=== PATIENT | female | born 1955 | race Caucasian/White ===

== ENCOUNTER 2016-08-06 12:55 | Emergency (ER) | payer MEDICAID, OTHER ==
[~2016-08-06] VITALS: Ht 162.6 cm; Wt 68.0 kg
[2016-08-07 00:09] LABS: Basophils # (auto) 0.1 uL; Basophils % (auto) 1.1 % (0.0-2.0); Eosinophils # (auto) 0.2 uL; Eosinophils % (auto) 2.1 % (0.0-7.0); Hematocrit 40.6 % (36.0-46.0); Hemoglobin 13.4 g/dL (12.2-16.2); Lymphocytes # (auto) 2.3 uL; Lymphocytes % (auto) 20.8 % (10.0-50.0); Mean Corpuscular Hemoglobin 31.4 pg (28.0-32.0); Mean Corpuscular Hgb Conc. 32.9 g/dL (32.0-36.0); Mean Corpuscular Volume 95.4 fL (80.0-100.0); Mean Platelet Volume 8.9 fL (7.4-10.4); Monocytes % (auto) 9.6 % (0.0-12.0); Neutrophils # (auto) 7.3 uL; Neutrophils % (auto) 66.4 % (37.0-80.0); Platelet Count (auto) 332 10^3/uL (140-450); Red Cell Distribution Width 16.1 % (11.6-16.0); White Blood Cell 10.9 10^3/uL (4.4-10.8)
[2016-08-07 00:54] LABS: Albumin 3.8 g/dL (3.4-5.0); BUN/Creatinine Ratio 20.6; Calcium 10.8 mg/dL (8.5-10.1); Potassium 3.8 mmol/L (3.5-5.1)
[2016-08-07 01:31] LABS: Bilirubin, Total 0.4 mg/dL (0.2-1.0); Total Protein 7.3 g/dL (6.4-8.2)
[2016-08-07] MEDS ORDERED: QUEtiapine FUMARATE 100 MG TAB PO ONE (03:30)
[2016-08-07] MEDS ORDERED: ZOLPIDEM TARTRATE 5 MG TAB PO ONE (03:30)
[2016-08-08 06:28] VITALS: BP 124/81
== END 2016-08-08 11:38 | disposition home or self-care (01) ==
LOC: ER 12:55
DX: F29 Unspecified psychosis not due to a substance or known physiological condition (principal); R45.1 Restlessness and agitation; R45.6 Violent behavior; F20.9 Schizophrenia, unspecified; G30.9 Alzheimer's disease, unspecified; Z91.14 Patient's other noncompliance with medication regimen
CPT/HCPCS: 36415; 80053; 85025; 93005

== ENCOUNTER → 2016-08-08 | Outpatient (CLI) | payer MEDICAID | END | disposition home or self-care (01) | LOC: LAB 11:48 | PROVIDERS: ATTEND Physician Assistant | DX: Z77.21 Contact with and (suspected) exposure to potentially hazardous body fluids (principal) | CPT/HCPCS: 86703 ==

== ENCOUNTER 2019-12-17 07:38 | Inpatient (IN) | payer MEDICARE, MEDICAID ==
[~2019-12-17] VITALS: Ht 167.6 cm; Wt 68.0 kg
[2019-12-17] MEDS ORDERED: SODIUM CHLORIDE 0.9% 1,000 ML IV ONE ×2 (07:44)
[2019-12-17 08:39] LABS: Basophils # (auto) 0.1 10 ^3/uL (0-0.2); Basophils % (auto) 0.9 % (0.0-2.0); Eosinophils # (auto) 0.1 10 ^3/uL (0-0.8); Eosinophils % (auto) 2.3 % (0.0-7.0); Hematocrit 41.3 % (36.0-46.0); Hemoglobin 13.5 g/dL (12.2-16.2); Lymphocytes # (auto) 1.3 10 ^3/uL (0.4-5.4); Mean Corpuscular Hemoglobin 30.1 pg (28.0-32.0); Mean Corpuscular Hgb Conc. 32.7 g/dL (32.0-36.0); Mean Corpuscular Volume 92.2 fL (80.0-100.0); Monocytes # (auto) 0.9 10 ^3/uL (0-1.3); Monocytes % (auto) 13.6 % (0.0-12.0); Neutrophils % (auto) 63.2 % (37.0-80.0); Platelet Count (auto) 314 10^3/uL (140-450); Red Blood Cells 4.48 10^6/uL (4.0-5.20); Red Cell Distribution Width 14.6 % (11.8-14.3); White Blood Cell 6.4 10^3/uL (4.4-10.8)
[2019-12-17 08:54] LABS: INR 0.99 (0.9-1.15); Partial Thromboplastin Time 25.6 sec (23.0-31.2)
[2019-12-17 09:01] LABS: Alanine Aminotransferase 26 U/L (13-56); Albumin 3.2 g/dL (3.4-5.0); Anion Gap 8 (5-15); Aspartate Aminotransferase 17 U/L (15-37); BUN/Creatinine Ratio 23.1; Blood Urea Nitrogen 24 mg/dL (7-18); Calcium 10.4 mg/dL (8.5-10.1); Carbon Dioxide 23 mmol/L (21-32); Chloride 110 mmol/L (98-107); GFR African American 68 mL/min; GFR Non-African American 57 mL/min; Glucose 97 mg/dL (74-106); Potassium 3.8 mmol/L (3.5-5.1); Sodium 141 mmol/L (136-145)
[2019-12-17 09:06] LABS: Alkaline Phosphatase 114 U/L (45-117); Bilirubin, Total 0.5 mg/dL (0.2-1.0)
[2019-12-17] MEDS ORDERED: LORazepam 2MG/ML-1ML VIAL IV ONE ×2 (10:00→10:45)
[2019-12-17] MEDS ORDERED: HALOPERIDOL LACTATE 5 MG/ML INJ VIAL IM ONE (10:00)
[2019-12-17] MEDS ORDERED: diphenhdrAMINE HCL 50 MG/1 ML VL IV ONE (10:45)
[2019-12-17] MEDS ORDERED: diphenhdrAMINE HCL 50 MG/1 ML VL ONE (10:47)
[2019-12-17] MEDS ORDERED: LORazepam 2MG/ML-1ML VIAL ONE (10:47)
[2019-12-17 11:48] LABS: Urine Bacteria NONE SEEN /hpf (None Seen); Urine Blood Negative /uL (Negative); Urine Specific Gravity 1.015 (1.001-1.035); Urine WBC 1 /hpf (0 - 5)
[2019-12-17] MEDS ORDERED: NITROGLYCERIN 0.4 MG SL TAB SL PRN (14:15)
[2019-12-17] MEDS ORDERED: MORPHINE SULF INJ 2 MG/ML SYRINGE 1ML IV PRN (14:15)
[2019-12-17] MEDS: SODIUM CHLORIDE 0.9% 1,000 ML IV SCH (14:56)
[2019-12-17] MEDS ORDERED: BACITRACIN TOP OINT 1 UD PKG TOP ONE (15:02)
[2019-12-17 15:59] LABS: Alcohol, Urine < 3.0 mg/dL (0-10); Amphetamine Screen, Urine NEGATIVE (NEGATIVE); Barbiturate Scree,Urine NEGATIVE (NEGATIVE); Benzodiazephine Screen, Urine NEGATIVE (NEGATIVE); Cannabinoid Screen, Urine NEGATIVE (NEGATIVE); Cocaine Screen, Urine NEGATIVE (NEGATIVE); Opiate Scree,Urine NEGATIVE (NEGATIVE); Phencyclidine Screen, Urine NEGATIVE (NEGATIVE)
[2019-12-17 17:00] VITALS: BP 144/86
[2019-12-17] MEDS ORDERED: HYDR-4924 PO (17:49)
[2019-12-17] MEDS ORDERED: QUET100T46 PO (17:49)
[2019-12-17] MEDS ORDERED: FLUO1TAB12 PO (17:49)
[2019-12-17] MEDS ORDERED: ALEN1TAB32 PO (17:49)
[2019-12-17] MEDS ORDERED: CYCL-611 PO (17:49)
--- NOTE | 2019-12-17 18:00 | NUR ---
MS admit from ER EDA LOPEZ admitted to tele/MS after SBAR received. Patient oriented to Rupal Chapman, primary RN, unit, room, bed, and unit policies regarding patient care and visiting hours. Patient weighed by bedscale and encouraged to call if they need something. Patient is comfortable sleeping in bed. Nasal cannula at 3 L. RR even and unlabored. Bed at lowest locked position and call light within reach.
[2019-12-17 18:11] LABS: Blood Alcohol < 3.0 mg/dL (0-5)
[2019-12-17 18:14] LABS: Creatine Kinase IFCC 91 U/L (26-192)
--- NOTE | 2019-12-17 18:53 | NUR ---
Tele-health computer at bedside.
--- NOTE | 2019-12-17 18:58 | NUR ---
Closing note Patient comfortably resting, NCat 3L, RR even and unlabored. Bed at lowest locked position and call light within reach. Report given to Gatito BEARDEN
[2019-12-17 22:00] VITALS: BP 122/78
[2019-12-17] MEDS ORDERED: TEMAZEPAM 15 MG CAP PO ONE (23:00)
--- NOTE | 2019-12-18 00:01 | NUR ---
1899. REPOR RECEIVED. 1929. PATIENT SEEN. SLEEPING BUT AROUSABLE. UNABLE TO ANSWER QUESTIONS. HAS DRY DRESSING BEHIND HER NECK. TO BE EVALUATED.
--- NOTE | 2019-12-18 01:17 | NUR ---
WOUND ON THE POSTRIOR NECK ASSESSED. DIRTY PINK GREYISH EXUDATE NOTED ON DRESSING. WOUND CLEANED WITH WOUND GUN STOCK MAKER. GAUZE APPLIED AND COVERED WITH ABDOMINAL PAD. PARTIAL BODY BATH DONE. PATIENT APPEARED TO BE GETTING ORIENTED. SHE WAS SUPRISED TO SEE HERSELF IN THE HOSPITAL BED AND ROOM.
--- NOTE | 2019-12-18 01:23 | NUR ---
PATIENT ASSISTED TO THE BEDSIDE COMMODE. VOIDED 500ML OF CLEAR URINE.
[2019-12-18 05:00] VITALS: BP 131/88
[2019-12-18 08:00] VITALS: BP 133/79
--- NOTE | 2019-12-18 08:15 | NUR ---
Opening Shift Note Assumed care of patient, pt comfortably resting.RR are even and unlabored. Patient arousable to voice and gentle touching. No S/S of distress/SOB or pain. Instructed on POC and to call for assist PRN, will continue to monitor for changes Q1hr and PRN. Bed at lowest locked position and call light within reach.
[2019-12-18 09:00] VITALS: BP 133/79
--- NOTE | 2019-12-18 10:02 | NUR ---
Wound care nurse at bedside.
--- NOTE | 2019-12-18 10:02 | NUR ---
WOUND CARE NOTE: Wound care in to see patient per wound care request regarding "neck abrasion. " Bedside nurse took photograph of patient's wound upon admission for reference. Patient is 64 years old female with admitting diagnosis of Encephalopathy. Patient is resting in bed in Rm. 286A. Patient's eyes are closed, respond to verbal and tactile stimuli and follow direction. Patient is in no stated pain at this time and she appears to be in no pain using Foreman Song Faces Pain Scale. She's able to turn and reposition self. Her Jesus score is 18. On reports, patient admitted due to bizarre behavior, history of psychiatric disorder and scratching herself causing wound to her L posterior neck. Noted patient's L posterior neck has 6x6cm open full thickness wound with no measurable depth, rommel wound is bright red, minimal serosanguineous drainage noted, no odor noted. Cleansed patient's wound with NS, patted dry with gauze, applied Thera honey gel and covered with Opti foam gentle dressing. Sacral and back, bony prominences area are also examined, no pressure injury noted. Patient tolerated well. Bed in low position with all safety precautions in placed. RECOMMENDATION: Nursing to continue with EOD/PRN dressing change to posterior neck wound per MD order, redistribute pressure points with pillows, continue monitoring by wound care while patient is hospitalized. Addendum: 12/18/19 at 1533 by Maryann Portillo RN Amended: Links added.
[2019-12-18] MEDS: SODIUM CHLORIDE 0.9% 1,000 ML IV SCH (11:06)
[2019-12-18] MEDS: cefTRIAXone 1GM/50ML D5W 50 ML IV SCH (11:07)
[2019-12-18] MEDS: ENOXAPARIN SOD 40 MG/0.4 ML SYRINGE SC SCH (11:07)
[2019-12-18] MEDS ORDERED: LACTULOSE 20Gm/30ML SOLN PO PRN (11:15)
--- NOTE | 2019-12-18 11:15 | NUR ---
Dr. Manrique at bedside.
[2019-12-18 13:00] VITALS: BP 158/89
--- NOTE | 2019-12-18 13:05 | NUR ---
Bladder scanner Bladder scanner showed approximately 700mls patient voided right after a total of 1100mls of dark yellow urine collected
--- NOTE | 2019-12-18 13:11 | NUR ---
Urine specimen collected and sent to lab
[2019-12-18 17:00] VITALS: BP 155/85
--- NOTE | 2019-12-18 17:16 | NUR ---
COVID test Collected new covid test. Walked test to lab.
--- NOTE | 2019-12-18 18:00 | NUR ---
Patient's temperature is 100.6. Will start cooling measures. No s/s of distress/noted.
--- NOTE | 2019-12-18 18:42 | NUR ---
Paged Hospitalist for elevated BP. 155/85. Awaiting call back.
--- NOTE | 2019-12-18 19:15 | NUR ---
Request Tele-psych report to be faxed to the hospital, endorsed to NOC.
--- NOTE | 2019-12-18 19:26 | NUR ---
closing note Patient is comfortable resting in bed. No s/s of distress/sob noted/stated. Bed at lowest locked position and call light within reach. Care endorsed to NOC RN.
--- NOTE | 2019-12-18 19:30 | NUR ---
Opening Shift Note Assumed care of patient. Patient sleeping. No S/S of distress/SOB or pain. Safety measures maintained by keeping the bed locked in lowest position, 2 side rails up, personal items and call light within reach. Bed alarm in place. Instructed on POC and to call for assist PRN, will continue to monitor for changes Q1hr and PRN.
[2019-12-18 22:00] VITALS: BP 135/76
[2019-12-19] MEDS: SODIUM CHLORIDE 0.9% 1,000 ML IV SCH ×2 (00:15→16:56)
--- NOTE | 2019-12-19 04:00 | NUR ---
Called Telehealth to fax report
--- NOTE | 2019-12-19 04:45 | NUR ---
Received report from [employer]. Placed in hard chart.
[2019-12-19 05:00] VITALS: BP 145/97
[2019-12-19 07:22] LABS: Basophils # (auto) 0 10 ^3/uL (0-0.2); Basophils % (auto) 0.6 % (0.0-2.0); Eosinophils # (auto) 0.2 10 ^3/uL (0-0.8); Eosinophils % (auto) 3.8 % (0.0-7.0); Hematocrit 40.5 % (36.0-46.0); Hemoglobin 13.1 g/dL (12.2-16.2); Lymphocytes # (auto) 1.2 10 ^3/uL (0.4-5.4); Lymphocytes % (auto) 21.4 % (10.0-50.0); Mean Corpuscular Hemoglobin 29.8 pg (28.0-32.0); Mean Corpuscular Hgb Conc. 32.4 g/dL (32.0-36.0); Mean Corpuscular Volume 92.1 fL (80.0-100.0); Monocytes # (auto) 0.6 10 ^3/uL (0-1.3); Monocytes % (auto) 11.2 % (0.0-12.0); Neutrophils # (auto) 3.5 10 ^3/uL (1.6-8.6); Nucleated Red Blood Cells % 0.1 %; Platelet Count (auto) 265 10^3/uL (140-450); Red Cell Distribution Width 14.1 % (11.8-14.3); White Blood Cell 5.6 10^3/uL (4.4-10.8)
[2019-12-19 07:29] LABS: Calcium 8.9 mg/dL (8.5-10.1); Potassium 3.9 mmol/L (3.5-5.1)
[2019-12-19] MEDS: ENOXAPARIN SOD 40 MG/0.4 ML SYRINGE SC SCH (08:39)
[2019-12-19] MEDS: cefTRIAXone 1GM/50ML D5W 50 ML IV SCH (08:39)
[2019-12-19 09:00] VITALS: BP 131/76
[2019-12-19 13:00] VITALS: BP 117/79
--- NOTE | 2019-12-19 13:54 | NUR ---
Est energy needs 1226-8670 kcal (20-25 kcal/kg BW 70.9kg) Est protein needs 57-71g (0.8-1g/kg BW 70.9kg) will reassess prn. Addendum: 12/19/19 at [address] Amended: Links added.
[2019-12-19] MEDS ORDERED: CLINDAMYCIN HCL 150 MG CAP PO ONE (15:45)
[2019-12-19 17:00] VITALS: BP 135/85
--- NOTE | 2019-12-19 19:30 | NUR ---
Opening Shift Note Assumed care of patient, awake and alert. A&Ox4. Patient resting in bed, but easily arousable. No S/S of distress/SOB or pain. Safety measures maintained by keeping the bed locked in lowest position, 2 side rails up, personal items and call light within reach. Instructed on POC and to call for assist PRN, will continue to monitor for changes Q1hr and PRN.
[2019-12-19 22:28] VITALS: BP 126/89
[2019-12-19] MEDS: CLINDAMYCIN HCL 150 MG CAP PO SCH (22:43)
[2019-12-20 05:17] VITALS: BP 136/101
[2019-12-20 06:18] LABS: Basophils # (auto) 0.1 10 ^3/uL (0-0.2); Basophils % (auto) 1.2 % (0.0-2.0); Eosinophils # (auto) 0.3 10 ^3/uL (0-0.8); Eosinophils % (auto) 5.5 % (0.0-7.0); Lymphocytes # (auto) 1.2 10 ^3/uL (0.4-5.4); Lymphocytes % (auto) 23.9 % (10.0-50.0); Mean Corpuscular Hemoglobin 30.5 pg (28.0-32.0); Mean Corpuscular Hgb Conc. 33.3 g/dL (32.0-36.0); Mean Corpuscular Volume 91.6 fL (80.0-100.0); Monocytes # (auto) 0.6 10 ^3/uL (0-1.3); Monocytes % (auto) 11.6 % (0.0-12.0); Neutrophils % (auto) 57.8 % (37.0-80.0); Nucleated Red Blood Cells % 0.2 %; Platelet Count (auto) 283 10^3/uL (140-450); Red Blood Cells 4.59 10^6/uL (4.0-5.20); Red Cell Distribution Width 14.4 % (11.8-14.3); White Blood Cell 5.2 10^3/uL (4.4-10.8)
[2019-12-20] MEDS: CLINDAMYCIN HCL 150 MG CAP PO SCH ×3 (06:21→22:11)
[2019-12-20 06:41] LABS: BUN/Creatinine Ratio 12.1; Potassium 3.7 mmol/L (3.5-5.1)
[2019-12-20 08:00] VITALS: BP 123/65
[2019-12-20] MEDS: ENOXAPARIN SOD 40 MG/0.4 ML SYRINGE SC SCH (08:44)
[2019-12-20] MEDS: SODIUM CHLORIDE 0.9% 1,000 ML IV SCH (08:46)
[2019-12-20] MEDS: cefTRIAXone 1GM/50ML D5W 50 ML IV SCH (08:46)
[2019-12-20 12:00] VITALS: BP 144/94
--- NOTE | 2019-12-20 13:27 | NUR ---
Doctor joe at bedside per md "patient can have pureed diet and if patient becomes nausea or has abdominal pain put in GI consult".
[2019-12-20] MEDS ORDERED: CYCLOBENZAPRINE HCL 10 MG TAB PO PRN (15:15)
[2019-12-20 17:00] VITALS: BP 120/72
[2019-12-20] MEDS: QUEtiapine FUMARATE 100 MG TAB PO SCH (17:37)
--- NOTE | 2019-12-20 19:35 | NUR ---
Opening Shift Note Assumed care of patient, awake and alert. Patient sitting up in bed. A&Ox4. No S/S of distress/SOB or pain. Safety measures maintained by keeping the bed locked in lowest position, personal items and call light within reach. Instructed on POC and to call for assist PRN, will continue to monitor for changes Q1hr and PRN.
[2019-12-20 21:00] VITALS: BP 115/66
[2019-12-20] MEDS: hydrOXYzine 25 MG TAB or CAP PO SCH (22:11)
[2019-12-21] MEDS: SODIUM CHLORIDE 0.9% 1,000 ML IV SCH ×2 (01:59→17:45)
[2019-12-21 05:00] VITALS: BP 123/74
[2019-12-21 05:23] LABS: Basophils # (auto) 0 10 ^3/uL (0-0.2); Eosinophils # (auto) 0.3 10 ^3/uL (0-0.8); Eosinophils % (auto) 5.4 % (0.0-7.0); Hemoglobin 12.5 g/dL (12.2-16.2); Lymphocytes # (auto) 1.4 10 ^3/uL (0.4-5.4); Lymphocytes % (auto) 29.7 % (10.0-50.0); Mean Corpuscular Hemoglobin 30.2 pg (28.0-32.0); Mean Corpuscular Hgb Conc. 32.9 g/dL (32.0-36.0); Mean Corpuscular Volume 91.7 fL (80.0-100.0); Monocytes # (auto) 0.6 10 ^3/uL (0-1.3); Monocytes % (auto) 13.3 % (0.0-12.0); Neutrophils # (auto) 2.4 10 ^3/uL (1.6-8.6); Neutrophils % (auto) 50.6 % (37.0-80.0); Nucleated Red Blood Cells % 0.1 %; Platelet Count (auto) 260 10^3/uL (140-450); Red Blood Cells 4.14 10^6/uL (4.0-5.20); Red Cell Distribution Width 14.4 % (11.8-14.3); White Blood Cell 4.8 10^3/uL (4.4-10.8)
[2019-12-21 05:43] LABS: BUN/Creatinine Ratio 13.2; Potassium 3.6 mmol/L (3.5-5.1)
[2019-12-21] MEDS: CLINDAMYCIN HCL 150 MG CAP PO SCH ×3 (06:29→21:53)
[2019-12-21] MEDS: FLUoxetine HCL 10 MG CAP PO SCH (06:29)
--- NOTE | 2019-12-21 06:38 | NUR ---
Medication Patient does not know where her own medication Alendronate Sodium is located. Addendum: 12/21/19 at 0646 by COLTEN HANNON RN RN Pharmacy called and notified of medication unavailability.
[2019-12-21 09:00] VITALS: BP 124/82
[2019-12-21] MEDS: hydrOXYzine 25 MG TAB or CAP PO SCH ×2 (10:16→21:53)
[2019-12-21] MEDS: cefTRIAXone 1GM/50ML D5W 50 ML IV SCH (10:16)
[2019-12-21] MEDS: ENOXAPARIN SOD 40 MG/0.4 ML SYRINGE SC SCH (10:16)
[2019-12-21 13:00] VITALS: BP 135/89
[2019-12-21] MEDS ORDERED: ALBUTEROL SULF 2.5 MG/0.5ML(0.5%) NEB SOLN NEB PRN (13:30)
--- NOTE | 2019-12-21 14:03 | NUR ---
Nutrition Followup Notes Pt wt is 71.1 kg Pt was awake with no relatives at bedside when rounded this morning. Pt is with a Pureed diet, appetite is good aeb ave 94% PO intake over 4 meals. Pt with no distress. Noted pt is on 5150 hold for release to an outpatient psych facility. Will continue to monitor PO status, skin status, pertinent labs and weight trends. Will f/u in 3-5 days. Est energy needs 7791-2775 kcal (20-25 kcal/kg BW 70.9kg) Est protein needs 57-71g (0.8-1g/kg BW 70.9kg) will reassess prn. LABS: Alb 3.2 L GI: Pt had 2 BM on 12/20 per RN doc. BS: 19 low risk Refer to wound assessment report for full details. PES: Overweight r/t caloric intake in excess of needs aeb pt with a BMI of 25.2kg/m2 Comments 1) Continue to monitor po intake, labs, skin 2) Refer pt to OPD on DC 3) Continue current plan of care
--- NOTE | 2019-12-21 15:21 | NUR ---
assessment Patient is a 64 year old female who is answering appropriate. I informed patient she has a consult to assist with placement in a new board and care facility. Patient informed me she lives at [facility] assisted [facility] and she is independent. Patient informed me she needs to leave said board and care due to her not needing assistance. Patient informed me she has already paid her rent for the month and will not have money to move until January 04. Patient informed me she will return home on discharge. I provided patient with room and boards for the [facility] and [facility]. Per patient she will research the room and boards and have her sister help with picking one. Patient verbalized understanding and agreed to discharge plan home. Addendum: 12/21/19 at 1529 by Josee CANNON Amended: Links added.
[2019-12-21 17:00] VITALS: BP 87/52
[2019-12-21] MEDS: QUEtiapine FUMARATE 100 MG TAB PO SCH (17:04)
--- NOTE | 2019-12-21 19:10 | NUR ---
TELE PSYCH DONE PER PSYCHIATRIST PATIENT IS CLEARED FOR D/C. PER PSYCHIATRIST CALL TO HAVE REPORT FAXED OVER.
[2019-12-21 21:50] VITALS: BP 121/86
[2019-12-22] VITALS (7 sets, daily range): BP systolic 99–153; BP diastolic 67–101
[2019-12-22] MEDS: CLINDAMYCIN HCL 150 MG CAP PO SCH ×3 (06:24→21:56)
[2019-12-22] MEDS: FLUoxetine HCL 10 MG CAP PO SCH (06:25)
--- NOTE | 2019-12-22 08:20 | NUR ---
PRN MN TX NOT INDICATED AT THIS TIME. PT ON 3L/MIN VIA NC, 93%, HR 88 BPM, RR19 BPM, BS ARE DIMINISHED TO AUSCULTATION. NO SOB OR ANY OTHER ACUTE RESPIRATORY DISTRESS. WILL CONTINUE TO MONITOR PT.
--- NOTE | 2019-12-22 08:43 | NUR ---
Tele Psych Report Spoke to Will at [facility], he will fax the report over.
[2019-12-22] MEDS: ENOXAPARIN SOD 40 MG/0.4 ML SYRINGE SC SCH (09:36)
[2019-12-22] MEDS: hydrOXYzine 25 MG TAB or CAP PO SCH ×2 (09:36→21:57)
[2019-12-22] MEDS: cefTRIAXone 1GM/50ML D5W 50 ML IV SCH (09:36)
[2019-12-22] MEDS: SODIUM CHLORIDE 0.9% 1,000 ML IV SCH (10:55)
[2019-12-22] MEDS: QUEtiapine FUMARATE 100 MG TAB PO SCH (17:46)
[2019-12-23 05:00] VITALS: BP 118/76
--- NOTE | 2019-12-23 05:14 | NUR ---
IV removal Pt's IV "fell out", catheter found fully intact in bed. Pressure dressing applied to site. Patient tolerated well. Pt educated on importance of new IV however, pt still refused new IV insertion.
[2019-12-23] MEDS: CLINDAMYCIN HCL 150 MG CAP PO SCH ×2 (06:25→14:00)
[2019-12-23] MEDS: FLUoxetine HCL 10 MG CAP PO SCH (06:25)
[2019-12-23 09:00] VITALS: BP 133/97
--- NOTE | 2019-12-23 09:45 | NUR ---
MD at bedside MD Cadet aware of patient's status. Awaiting new orders at this time including dc orders.
[2019-12-23] MEDS: ENOXAPARIN SOD 40 MG/0.4 ML SYRINGE SC SCH (10:01)
[2019-12-23] MEDS: hydrOXYzine 25 MG TAB or CAP PO SCH (10:01)
--- NOTE | 2019-12-23 10:48 | NUR ---
Respiratory note: PT ASSESSED FOR PRN MN TX. HR 91, RR 20, POX 92% ON RA, BS ARE COARSE. NO SOB OR DISTRESS NOTED. PT WAS NOTIFY TO HAVE RN PAGED IF MN TX WAS NEEDED.
--- NOTE | 2019-12-23 10:56 | NUR ---
re-assessment Per consult [facility] for safety, PT, Medication management, vitals. Eri BEARDEN infomred patient of her consult and offered patient a list of medicare providers. Per Eri BEARDEN patient has no preference on who provides service. MD order has been sent to [facility]. Per Joseph at [place] service will start on 12/24/2019. Addendum: 12/23/19 at 1100 by Josee Stack Amended: Links added.
--- NOTE | 2019-12-23 10:57 | NUR ---
Room air pulse ox is >92% no sob noted or distress
[2019-12-23] MEDS ORDERED: DOCU-94 PO (12:18)
[2019-12-23 12:41] VITALS: BP 144/91
--- NOTE | 2019-12-23 13:10 | NUR ---
Attempted to call Josee Stack geriatric social worker at this time regarding status of [facility] address and info of where patient is going to. Notes do not state address. Awaiting call back at this time.
--- NOTE | 2019-12-23 14:13 | NUR ---
Paged social sciences chair Josee Stack STAT requesting call back, awaiting call back at this time
--- NOTE | 2019-12-23 14:55 | NUR ---
Attempted to call patient's sister Ayaka at [phone] multiple times and she did not answer. Left voicemail requesting call back to call this rn.
--- NOTE | 2019-12-23 14:59 | NUR ---
Spoke to Rep spoke to Joseph with [facility], she states that she spoke to Josee Stack and notified her that the address and phone number she provided for her are for the patient's sister Lupe. Joseph states she notified Josee that she spoke to Ayaka and Lupe is "very upset and she does not want the patient to be discharged to her house (Lupe's house)". Per Liudmilaoriana, she states Lupe told her that the patient lives at a [facility]&C and did not provide further information. Joseph states Josee told her to "contact the nurse to look up address to the B&[facility]". This rn attempted multiple times to ask patient for address to B&C, looked through multiple papers that the patient had, called the different numbers patient was providing, and tried to look up multiple addresses that the patient tried to provide but unsuccessful. This rn paged Doctor Cadet to notify. [address] back from Dr Cadet and she states Josee Stack told her "everything was already set up and patient was ready to go". I informed Dr Cadet that there is no address anywhere in the noted or chart to where the patient is going. Per MD Cadet, paged someone to talk to Josee Stack to figure it out as patient is discharged already and needs to go back. coffee urn attendant Pallavi/Janice notified and will investigate along with [place] [employer] social worker. Patient made aware and she is very aggressive and cussing stating she's going to leave. Patient reoriented and she seems more calm and will wait in her room.
--- NOTE | 2019-12-23 15:14 | NUR ---
STAT page sent for Josee Stack social media marketer to return call. Awaiting call back at this time.
--- NOTE | 2019-12-23 15:40 | NUR ---
Spoke to Per Leanne psych social worker, she called 911 and was able to obtain the address to where the patient was picked up from with [facility]. Per Leanne, dehydrogenation operator states place is called [facility] at [address] [place] [address]. Obtained taxi voucher for transport. Patient is on and off schizophrenic behavior at this time. Charge nurses Janice and Pallavi working on obtaining a phone number to above mentioned facility to call and make sure patient will be accepted back.
--- NOTE | 2019-12-23 17:19 | NUR ---
Patient will go [place] [facility] [place] [id number] [facility] [id number] per Pallavi electrical discharge machine operator she spoke to Moraima Gillis at the facility and states patient is accepted back as she has already paid rent there. Phone number is [phone]. Awaiting taxi grain picker at this time.
[2019-12-23] MEDS: QUEtiapine FUMARATE 100 MG TAB PO SCH (17:30)
--- NOTE | 2019-12-23 18:00 | NUR ---
Discharge instructions given as ordered. Encourage to follow up with PMD as instructed. All questions and concerns addressed. Patient verbalized understanding. Medication reconciliation form completed and copy given to patient. Patient ambulated [facility] taxi is waiting for picker and packer no distress. Patient ambulated with new clothes provided to her from [facility] "closet" she threw away a bag of belongings stating "does not need them anymore". Pt accompanied by staff. No distress noted at time of departure. I spoke to Josee Stack and notified of dc she states she will follow up with agency to make sure they have right address to start services tomorrow.
== END 2019-12-23 18:00 | disposition home health service (06) | DRG 52 ==
LOC: EDBD 07:38 → ER 07:38 → EDUNIT# 07:38 → OVERFLOW 07:39 → WEST WING 16:23
PROVIDERS: ATTEND Internal Medicine
DX: G92 Toxic encephalopathy (principal); F20.9 Schizophrenia, unspecified; F32.9 Major depressive disorder, single episode, unspecified; G30.9 Alzheimer's disease, unspecified; K59.00 Constipation, unspecified; E83.52 Hypercalcemia; S11.90XA Unspecified open wound of unspecified part of neck, initial encounter; N32.89 Other specified disorders of bladder; N18.3 Chronic kidney disease, stage 3 (moderate); Z20.828 Contact with and (suspected) exposure to other viral communicable diseases; N17.0 Acute kidney failure with tubular necrosis; J45.909 Unspecified asthma, uncomplicated; K44.9 Diaphragmatic hernia without obstruction or gangrene; M40.209 Unspecified kyphosis, site unspecified; M48.54XA Collapsed vertebra, not elsewhere classified, thoracic region, initial encounter for fracture; Z87.891 Personal history of nicotine dependence; Z93.3 Colostomy status; F02.81 Dementia in other diseases classified elsewhere, unspecified severity, with behavioral disturbance
CPT/HCPCS: 36415; 70450; 71045; 72040; 74176; 80048; 80053; 80307; 80320; 81001; 82550; 83880; 84484; 85025; 85610; 85730; 87040; 87086; 94640; G0378; J0696

== ENCOUNTER → 2020-01-19 | Emergency (ER) | payer MEDICARE, MEDICAID ==
[~2020-01-19] VITALS: Ht 165.1 cm; Wt 72.6 kg
[~2020-01-19] MED LIST: ALEN1TAB32 PO; CYCL-611 PO; DOCU-94 PO; FLUO1TAB12 PO; HYDR-4924 PO; LORazepam 2MG/ML-1ML VIAL IM ONE; QUET100T46 PO
[2020-01-19 14:49] LABS: Basophils # (auto) 0.1 10 ^3/uL (0-0.2); Basophils % (auto) 0.9 % (0.0-2.0); Eosinophils # (auto) 0.2 10 ^3/uL (0-0.8); Eosinophils % (auto) 1.8 % (0.0-7.0); Hematocrit 45.9 % (36.0-46.0); Hemoglobin 14.8 g/dL (12.2-16.2); Lymphocytes # (auto) 2.1 10 ^3/uL (0.4-5.4); Lymphocytes % (auto) 20.6 % (10.0-50.0); Mean Corpuscular Hgb Conc. 32.4 g/dL (32.0-36.0); Mean Corpuscular Volume 92.7 fL (80.0-100.0); Monocytes # (auto) 1.2 10 ^3/uL (0-1.3); Monocytes % (auto) 12.2 % (0.0-12.0); Neutrophils # (auto) 6.5 10 ^3/uL (1.6-8.6); Neutrophils % (auto) 64.5 % (37.0-80.0); Nucleated Red Blood Cells % 0.1 %; Platelet Count (auto) 305 10^3/uL (140-450); Red Blood Cells 4.95 10^6/uL (4.0-5.20); Red Cell Distribution Width 14.7 % (11.8-14.3); White Blood Cell 10.1 10^3/uL (4.4-10.8)
[2020-01-19 15:09] LABS: Salicylate < 1.7 mg/dL (2.8-20.0)
[2020-01-19 15:10] LABS: Chloride 109 mmol/L (98-107); Potassium 4.2 mmol/L (3.5-5.1); Sodium 139 mmol/L (136-145)
[2020-01-19 15:16] LABS: Alanine Aminotransferase 47 U/L (13-56); Albumin 3.6 g/dL (3.4-5.0); Alkaline Phosphatase 116 U/L (45-117); Anion Gap 8 (5-15); Aspartate Aminotransferase 38 U/L (15-37); BUN/Creatinine Ratio 27.5; Bilirubin, Total 0.4 mg/dL (0.2-1.0); Blood Alcohol < 3.0 mg/dL (0-5); Blood Urea Nitrogen 36 mg/dL (7-18); Calcium 10.7 mg/dL (8.5-10.1); Carbon Dioxide 22 mmol/L (21-32); GFR African American 52 mL/min; GFR Non-African American 43 mL/min; Glucose 101 mg/dL (74-106); Total Protein 8.6 g/dL (6.4-8.2)
[2020-01-19 15:35] LABS: Acetaminophen < 2.0 ug/mL (10-30)
[2020-01-19 16:43] VITALS: BP 113/74
== END | disposition home or self-care (01) ==
LOC: ER 12:59 → EDBD 12:59 → EDUNIT# 12:59
DX: F29 Unspecified psychosis not due to a substance or known physiological condition (principal); F20.9 Schizophrenia, unspecified; F31.9 Bipolar disorder, unspecified; G30.9 Alzheimer's disease, unspecified
CPT/HCPCS: 36415; 80053; 80320; 80329; 85025; 96372; 99284; J2060